=== PATIENT | male | born 1995 | race Caucasian/White ===

== ENCOUNTER 2018-04-21 00:24 | Inpatient (IN) | payer BC, OTHER ==
[~2018-04-21] VITALS: Ht 175.3 cm; Wt 74.8 kg
--- NOTE | 2018-04-21 01:24 | NUR ---
Pre-admission assessment Patient is a 22-year old, male, seen at intake, AAOx4, no SOB but noted with anxiety. Patient is also emotional, teary-eyed, hyperverbal and with racing thoughts. Patient is intoxicated and smells of alcohol. Discussed with patient admission policies of the unit. Patient is coherent and able to respond to questions appropriately. Patient is accompanied by two of his friends. Pt is ambulatory with steady gait. Pt reports that he has been drinking Whiskey 1/2 of a gallon daily for 3 years. He also reports using Xanax 3 mg 4-5x per week, Cocaine via snorting 0.5 gm 3-4x per week, Marijuana via smoke 2 gm daily and Methamphetamine via smoke intermittently. Vital signs taken and as follows: MN=470/89, P=107, O2 sat on RA=98%, RR=20, T=98.4. Pt verbalized instructions and teachings regarding disposal of narcotic, Benzodiazepines and other controlled home meds, unit protocols such as taking of vital signs Q4H and handling and disposal of contraband. Patient verbalized understanding.
[2018-04-21] MEDS ORDERED: MAG HYDROX/AL HYDROX/SIMETH 30 ML LIQUID UDC PO PRN (01:30)
[2018-04-21] MEDS ORDERED: LORAZEPAM 2 MG/1 ML VIAL IM PRN (01:30)
[2018-04-21] MEDS ORDERED: SRC BENZO WITHDRAWAL ADMITTING PROTOCOL XX PRN (01:30)
[2018-04-21] MEDS ORDERED: THIAMINE HCL 200 MG/2 ML VIAL IM ONE (01:30)
[2018-04-21] MEDS ORDERED: diphenhydrAMINE 50 MG CAPSULE PO PRN (01:30)
[2018-04-21] MEDS ORDERED: ONDANSETRON ODT 4 MG TAB.RAPDIS SL PRN (01:30)
[2018-04-21] MEDS ORDERED: HYDROXYZINE PAMOATE 25 MG CAPSULE PO PRN (01:30)
[2018-04-21] MEDS ORDERED: IBUPROFEN 600 MG TABLET PO PRN (01:30)
[2018-04-21] MEDS ORDERED: ACETAMINOPHEN 325 MG TABLET PO PRN (01:30)
[2018-04-21] MEDS ORDERED: MIRALAX 17 GM POWD.PACK PO PRN (01:30)
[2018-04-21] MEDS ORDERED: SRC ALCOHOL WITHDRAWAL ADMITTING PROTOCOL XX PRN (01:30)
[2018-04-21] MEDS ORDERED: LORAZEPAM 0.5 MG TABLET PO PRN ×2 (01:30)
[2018-04-21] MEDS ORDERED: ONDANSETRON 4 MG/2 ML VIAL IM PRN (01:30)
[2018-04-21] MEDS ORDERED: LOPERAMIDE HCL 2 MG CAPSULE PO PRN ×2 (01:30)
[2018-04-21] MEDS ORDERED: CLONIDINE HCL 0.1 MG TABLET PO PRN (01:30)
[2018-04-21] MEDS ORDERED: MAGNESIUM HYDROXIDE 30 ML LIQUID UDC PO PRN (01:30)
[2018-04-21 01:50] LABS: BASOPHILS # (AUTO) 0.1 K/uL (0.0-8.0); BASOPHILS % (AUTO) 1.1 % (0.0-2.0); EOSINOPHILS # (AUTO) 0.5 K/uL (0.0-0.7); EOSINOPHILS % (AUTO) 7.8 % (0.0-7.0); HEMATOCRIT 44.8 % (36.7-47.1); HEMOGLOBIN 16.1 g/dL (12.5-16.3); LYMPHOCYTES # (AUTO) 2.6 K/uL (20.0-40.0); LYMPHOCYTES % (AUTO) 41.1 % (20.5-51.5); MEAN CORPUSCULAR HEMOGLOBIN 34.5 uug (23.8-33.4); MEAN CORPUSCULAR HGB CONC 36 g/dL (32.5-36.3); MEAN CORPUSCULAR VOLUME 96.3 fL (73.0-96.2); MONOCYTES # (AUTO) 0.5 K/uL (2.0-10.0); MONOCYTES % (AUTO) 7.9 % (0.0-11.0); NEUTROPHILS # (AUTO) 2.7 K/uL (1.8-8.9); NEUTROPHILS % (AUTO) 42.1 % (38.5-71.5); PLATELET COUNT (AUTO) 333 K/uL (152-348); RED BLOOD CELL COUNT(AUTO) 4.65 MIL/uL (4.06-5.63); WHITE BLOOD COUNT (AUTO) 6.3 K/uL (3.6-10.2)
[2018-04-21 01:53] LABS: BILIRUBIN,TOTAL 0.3 mg/dL (0.2-1.0); CREATININE 1.1 mg/dL (0.6-1.3); MAGNESIUM 2.3 mg/dL (1.8-2.4); POTASSIUM 3.3 mmol/L (3.5-5.1); TOTAL PROTEIN, SERUM 8.4 g/dL (6.4-8.2)
[2018-04-21 02:01] LABS: *AMPHETAMINE, URINE NEGATIVE (NEGATIVE); *BARBITURATE, URINE NEGATIVE (NEGATIVE); *CANNABINOID, URINE POSITIVE (NEGATIVE); *COCCAINE, URINE POSITIVE (NEGATIVE); *OPIATE, URINE NEGATIVE (NEGATIVE); *PHENCYCLIDINE SCREEN,URINE NEGATIVE (NEGATIVE)
[2018-04-21 02:02] LABS: THYROID STIMULATING HORMONE 2.215 mIU/mL (0.358-3.740)
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
[2018-04-21 03:15] VITALS: BP 128/85
--- NOTE | 2018-04-21 03:25 | NUR ---
KAIT[facility] Patient arrived on the unit at 0131. He was admitted for Alcohol (Whiskey) use as well as use of Xanax, Cocaine, Marijuana and Methamphetamine. Patient was emotionally labile and tearful. He verbalized that he's not ready for detox. He stated that he was unaware that he was coming for detox when his friend brought him in. Several attempts were made by staff in explaining to patient the benefits of staying for detox and the risks of leaving at this time. He verbalized understanding but was adamant and still decided to leave KAITLYNN: "I understand what you're trying to stay but I don't want to be here. I want to be at my house. I am not ready." He signed [facility] paperwork and left the unit at 0325. Patient is AAOx4, vital signs are stable and patient ambulates with steady gait. made aware. Addendum: 04/21/18 at 0631 by GLENDY ARNETT RN Additional information: Patient was given the list of community resources.
[2018-04-22 07:06] LABS: HEPATITIS B SURFACE AG Negative (Negative)
[2018-04-22] MEDS ORDERED: FOLIC ACID 1 MG TABLET PO SCH (09:00)
[2018-04-22] MEDS ORDERED: THIAMINE HCL 100 MG TABLET PO SCH (09:00)
[2018-04-22] MEDS ORDERED: TUBERCULIN,PURIF.PROT.DERIV. 5 TU/0.1 ML TEST ID ONE (09:00)
[2018-04-22] MEDS ORDERED: MULTIVITAMINS,THERAPEUTIC TABLET PO SCH (09:00)
== END 2018-04-21 03:25 | disposition left against medical advice (07) | DRG 894 ==
LOC: SRC 00:52
PROVIDERS: ADMIT Family Medicine Addiction Medicine; ATTEND Family Medicine Addiction Medicine
DX: F10.20 Alcohol dependence, uncomplicated (principal); F14.229 Cocaine dependence with intoxication, unspecified; F13.229 Sedative, hypnotic or anxiolytic dependence with intoxication, unspecified; Y90.9 Presence of alcohol in blood, level not specified; F43.10 Post-traumatic stress disorder, unspecified; F90.9 Attention-deficit hyperactivity disorder, unspecified type; F41.1 Generalized anxiety disorder; F12.129 Cannabis abuse with intoxication, unspecified; G47.00 Insomnia, unspecified; F32.9 Major depressive disorder, single episode, unspecified
CPT/HCPCS: 36415; 80307; 80349; 80353; 83690; 83735; 84443; 85025; 86592; 86705; 86803; 87340; 87806; A4663; G0480

== ENCOUNTER 2018-04-21 14:29 | Inpatient (IN) | payer BC, OTHER ==
[~2018-04-21] VITALS: Ht 172.7 cm; Wt 72.6 kg
[2018-04-21] MEDS ORDERED: THIAMINE HCL 200 MG/2 ML VIAL IM ONE (16:00)
[2018-04-21] MEDS: THIAMINE HCL 100 MG TABLET PO SCH (16:00)
[2018-04-21] MEDS ORDERED: MIRALAX 17 GM POWD.PACK PO PRN (16:00)
[2018-04-21] MEDS ORDERED: IBUPROFEN 600 MG TABLET PO PRN (16:00)
[2018-04-21] MEDS ORDERED: ONDANSETRON 4 MG/2 ML VIAL IM PRN (16:00)
[2018-04-21] MEDS ORDERED: DIAZEPAM 10 MG TABLET PO PRN ×2 (16:00)
[2018-04-21] MEDS ORDERED: MAGNESIUM HYDROXIDE 30 ML LIQUID UDC PO PRN (16:00)
[2018-04-21] MEDS ORDERED: DIAZEPAM 5 MG TABLET PO PRN (16:00)
[2018-04-21] MEDS ORDERED: LOPERAMIDE HCL 2 MG CAPSULE PO PRN ×2 (16:00)
[2018-04-21] MEDS ORDERED: ONDANSETRON ODT 4 MG TAB.RAPDIS SL PRN (16:00)
[2018-04-21] MEDS ORDERED: MAG HYDROX/AL HYDROX/SIMETH 30 ML LIQUID UDC PO PRN (16:00)
[2018-04-21] MEDS: MULTIVITAMINS,THERAPEUTIC TABLET PO SCH (16:00)
[2018-04-21] MEDS: FOLIC ACID 1 MG TABLET PO SCH (16:00)
[2018-04-21] MEDS ORDERED: LORAZEPAM 2 MG/1 ML VIAL IM PRN (16:00)
[2018-04-21 16:30] VITALS: BP 110/74
[2018-04-21 17:25] LABS: BASOPHILS % (AUTO) 0.7 % (0.0-2.0); EOSINOPHILS # (AUTO) 0.3 K/uL (0.0-0.7); EOSINOPHILS % (AUTO) 4.2 % (0.0-7.0); HEMATOCRIT 44.6 % (36.7-47.1); HEMOGLOBIN 15.5 g/dL (12.5-16.3); LYMPHOCYTES # (AUTO) 1.9 K/uL (20.0-40.0); LYMPHOCYTES % (AUTO) 27.8 % (20.5-51.5); MEAN CORPUSCULAR HEMOGLOBIN 33.9 uug (23.8-33.4); MEAN CORPUSCULAR HGB CONC 35 g/dL (32.5-36.3); MEAN CORPUSCULAR VOLUME 97.4 fL (73.0-96.2); MONOCYTES # (AUTO) 0.7 K/uL (2.0-10.0); NEUTROPHILS # (AUTO) 3.8 K/uL (1.8-8.9); NEUTROPHILS % (AUTO) 57.3 % (38.5-71.5); PLATELET COUNT (AUTO) 327 K/uL (152-348); RED BLOOD CELL COUNT(AUTO) 4.58 MIL/uL (4.06-5.63); WHITE BLOOD COUNT (AUTO) 6.7 K/uL (3.6-10.2)
[2018-04-21 17:33] LABS: *AMPHETAMINE, URINE NEGATIVE (NEGATIVE); *BARBITURATE, URINE NEGATIVE (NEGATIVE); *CANNABINOID, URINE POSITIVE (NEGATIVE); *COCCAINE, URINE POSITIVE (NEGATIVE); *OPIATE, URINE NEGATIVE (NEGATIVE); *PHENCYCLIDINE SCREEN,URINE NEGATIVE (NEGATIVE)
[2018-04-21 17:37] LABS: BILIRUBIN,TOTAL 0.5 mg/dL (0.2-1.0); CREATININE 1.1 mg/dL (0.6-1.3); MAGNESIUM 1.9 mg/dL (1.8-2.4); POTASSIUM 3.6 mmol/L (3.5-5.1); TOTAL PROTEIN, SERUM 7.9 g/dL (6.4-8.2)
[2018-04-21 18:01] LABS: THYROID STIMULATING HORMONE 0.856 mIU/mL (0.358-3.740)
[2018-04-21 20:00] VITALS: BP 116/68
[2018-04-21] MEDS: diphenhydrAMINE 50 MG CAPSULE PO PRN (20:59)
[2018-04-21] MEDS: CLONIDINE HCL 0.1 MG TABLET PO PRN (20:59)
[2018-04-22] VITALS: BP 119/72
[2018-04-22] MEDS: ACETAMINOPHEN 325 MG TABLET PO PRN (07:45)
[2018-04-22] MEDS: HYDROXYZINE PAMOATE 25 MG CAPSULE PO PRN (07:45)
[2018-04-22 08:05] VITALS: BP 124/66
[2018-04-22] MEDS: MULTIVITAMINS,THERAPEUTIC TABLET PO SCH (08:31)
[2018-04-22] MEDS: THIAMINE HCL 100 MG TABLET PO SCH (08:31)
[2018-04-22] MEDS: DIAZEPAM 10 MG TABLET PO SCH ×3 (08:31→20:23)
[2018-04-22] MEDS: FOLIC ACID 1 MG TABLET PO SCH (08:31)
[2018-04-22] MEDS ORDERED: TUBERCULIN,PURIF.PROT.DERIV. 5 TU/0.1 ML TEST ID ONE (09:00)
[2018-04-22] MEDS ORDERED: 5 DAY TAPER VALIUM-SERENITY PROTOCOL PO PRN (09:00)
[2018-04-22 12:55] VITALS: BP 118/63
[2018-04-22 16:00] VITALS: BP 133/83
[2018-04-22 20:00] VITALS: BP 118/70
[2018-04-22] MEDS: diphenhydrAMINE 50 MG CAPSULE PO PRN (20:23)
[2018-04-22] MEDS: CLONIDINE HCL 0.1 MG TABLET PO PRN (20:24)
[2018-04-23] MEDS: THIAMINE HCL 100 MG TABLET PO SCH (08:06)
[2018-04-23] MEDS: MULTIVITAMINS,THERAPEUTIC TABLET PO SCH (08:06)
[2018-04-23] MEDS: FOLIC ACID 1 MG TABLET PO SCH (08:06)
[2018-04-23] MEDS: DIAZEPAM 5 MG TABLET PO SCH ×4 (08:06→21:16)
[2018-04-23 08:31] VITALS: BP 116/83
[2018-04-23 11:05] LABS: HEPATITIS B SURFACE AG Negative (Negative)
[2018-04-23 12:26] VITALS: BP 151/98
[2018-04-23 16:40] VITALS: BP 124/87
[2018-04-23] MEDS: HYDROXYZINE PAMOATE 25 MG CAPSULE PO PRN (17:44)
[2018-04-23] MEDS: CLONIDINE HCL 0.1 MG TABLET PO PRN (17:44)
[2018-04-23 20:00] VITALS: BP 140/80
[2018-04-23] MEDS ORDERED: TRAZODONE 50 MG TABLET PO ONE (21:00)
[2018-04-24 08:00] VITALS: BP 112/61
[2018-04-24 08:09] LABS: BILIRUBIN,DIRECT 0.1 mg/dL (0.0-0.2); BILIRUBIN,TOTAL 0.4 mg/dL (0.2-1.0); TOTAL PROTEIN, SERUM 6.6 g/dL (6.4-8.2)
[2018-04-24] MEDS: THIAMINE HCL 100 MG TABLET PO SCH (08:41)
[2018-04-24] MEDS: DIAZEPAM 5 MG TABLET PO SCH ×3 (08:41→20:59)
[2018-04-24] MEDS: MULTIVITAMINS,THERAPEUTIC TABLET PO SCH (08:41)
[2018-04-24] MEDS: FOLIC ACID 1 MG TABLET PO SCH (08:41)
[2018-04-24 12:00] VITALS: BP 109/52
[2018-04-24 16:00] VITALS: BP 126/72
[2018-04-24] MEDS: ACETAMINOPHEN 325 MG TABLET PO PRN (18:05)
[2018-04-24] MEDS: CLONIDINE HCL 0.1 MG TABLET PO PRN (18:08)
[2018-04-24 20:00] VITALS: BP 123/71
[2018-04-24] MEDS: diphenhydrAMINE 50 MG CAPSULE PO PRN (21:05)
[2018-04-25 08:00] VITALS: BP 147/78
[2018-04-25] MEDS: MULTIVITAMINS,THERAPEUTIC TABLET PO SCH (08:28)
[2018-04-25] MEDS: FOLIC ACID 1 MG TABLET PO SCH (08:28)
[2018-04-25] MEDS: DIAZEPAM 5 MG TABLET PO SCH ×2 (08:28→20:36)
[2018-04-25] MEDS: THIAMINE HCL 100 MG TABLET PO SCH (08:28)
[2018-04-25 12:00] VITALS: BP 132/95
[2018-04-25] MEDS: CLONIDINE HCL 0.1 MG TABLET PO PRN ×2 (14:12→22:31)
[2018-04-25] MEDS: ACETAMINOPHEN 325 MG TABLET PO PRN (14:12)
[2018-04-25 16:00] VITALS: BP 140/79
[2018-04-25 20:00] VITALS: BP 119/72
[2018-04-25] MEDS: diphenhydrAMINE 50 MG CAPSULE PO PRN (20:36)
[2018-04-25 22:31] VITALS: BP 117/81
[2018-04-26 07:36] LABS: BILIRUBIN,TOTAL 0.4 mg/dL (0.2-1.0); POTASSIUM 4.3 mmol/L (3.5-5.1); TOTAL PROTEIN, SERUM 7.4 g/dL (6.4-8.2)
[2018-04-26 08:00] VITALS: BP 119/85
[2018-04-26] MEDS ORDERED: DIAZEPAM 5 MG TABLET PO SCH (09:00)
[2018-04-26] MEDS: MULTIVITAMINS,THERAPEUTIC TABLET PO SCH (09:01)
[2018-04-26] MEDS: THIAMINE HCL 100 MG TABLET PO SCH (09:02)
[2018-04-26] MEDS: FOLIC ACID 1 MG TABLET PO SCH (09:02)
[2018-04-26 12:00] VITALS: BP 125/80
[2018-04-26] MEDS ORDERED: HYDR-3895 PO (12:58)
[2018-04-26] MEDS ORDERED: DIPH50CA37 PO (12:58)
[2018-04-26] MEDS ORDERED: CLON0.1T14 PO (12:58)
[2018-04-26 16:00] VITALS: BP 120/80
[2018-04-26 20:00] VITALS: BP 126/77
[2018-04-26] MEDS: HYDROXYZINE PAMOATE 25 MG CAPSULE PO PRN (20:36)
[2018-04-26] MEDS: diphenhydrAMINE 50 MG CAPSULE PO PRN (20:36)
[2018-04-26] MEDS: CLONIDINE HCL 0.1 MG TABLET PO PRN (20:36)
[2018-04-27 08:00] VITALS: BP 124/77
[2018-04-27] MEDS: FOLIC ACID 1 MG TABLET PO SCH (08:30)
[2018-04-27] MEDS: THIAMINE HCL 100 MG TABLET PO SCH (08:30)
[2018-04-27] MEDS: MULTIVITAMINS,THERAPEUTIC TABLET PO SCH (08:30)
== END 2018-04-27 09:36 | disposition home or self-care (01) | DRG 895 ==
LOC: SRC 15:43
PROVIDERS: ADMIT Family Medicine Addiction Medicine; ATTEND Internal Medicine Addiction Medicine
PROC: HZ2ZZZZ Detoxification Services for Substance Abuse Treatment (ICD-10-PCS; principal; 2018-04-21)
PROC: HZ41ZZZ Group Counseling for Substance Abuse Treatment, Behavioral (ICD-10-PCS; 2018-04-23)
PROC: HZ31ZZZ Individual Counseling for Substance Abuse Treatment, Behavioral (ICD-10-PCS; 2018-04-24)
DX: F10.230 Alcohol dependence with withdrawal, uncomplicated (principal); F13.230 Sedative, hypnotic or anxiolytic dependence with withdrawal, uncomplicated; Y90.5 Blood alcohol level of 100-119 mg/100 ml; S62.326A Displaced fracture of shaft of fifth metacarpal bone, right hand, initial encounter for closed fracture; Y33.XXXA Other specified events, undetermined intent, initial encounter; Y93.89 Activity, other specified; Y99.8 Other external cause status; F14.10 Cocaine abuse, uncomplicated; F43.10 Post-traumatic stress disorder, unspecified; G47.00 Insomnia, unspecified; F90.9 Attention-deficit hyperactivity disorder, unspecified type; F32.9 Major depressive disorder, single episode, unspecified; F15.23 Other stimulant dependence with withdrawal; F41.1 Generalized anxiety disorder; F12.10 Cannabis abuse, uncomplicated; Z91.19 Patient's noncompliance with other medical treatment and regimen
CPT/HCPCS: 36415; 70030-TC; 73130; 80307; 80346; 80349; 83690; 83735; 84443; 85025; 86580; 86592; 86705; 86803; 87340; 87806; G0480; Q0163